=== PATIENT | female | born 1945 | race Caucasian/White ===

== ENCOUNTER 2017-04-14 11:21 | Outpatient (CLI) | payer MEDICARE, BC ==
[~2017-04-14] VITALS: Ht 157.6 cm; Wt 60.0 kg
[2017-04-14 11:56] VITALS: BP 125/69; PULSE 81; TEMP 98.1
[2017-04-14] MEDS ORDERED: BUSPAR DIVIDOSE15 MG PO (12:02)
[2017-04-14] MEDS ORDERED: NEURONTIN600 MG/TAB PO (12:03)
[2017-04-14] MEDS ORDERED: ESTRACE 1MG1 MG/TAB PO (12:03)
[2017-04-14] MEDS ORDERED: SYNTHROID0.088 MG/T PO (12:03)
[2017-04-14] MEDS ORDERED: PRINZIDE 12.5 M1 TAB PO (12:04)
[2017-04-14] MEDS ORDERED: MOBIC 7.5MG7.5 MG PO (12:11)
[2017-04-14] MEDS ORDERED: MOBIC 7.5MG7.5 MG (12:11)
[2017-04-14] MEDS ORDERED: PRAVACHOL 40MG40 MG PO (12:11)
[2017-04-14] MEDS ORDERED: PROBIOTIC FORMU1 CAP PO (12:12)
[2017-04-14] MEDS ORDERED: EFFEXOR-XR150 MG PO (12:12)
[2017-04-14] MEDS ORDERED: ASPIRIN 81M81 MG/TA2 PO (14:14)
== END 2017-04-14 14:56 | disposition home or self-care (01) ==
LOC: COL.CAR 11:21
DX: R55 Syncope and collapse (principal)

== ENCOUNTER 2017-10-16 13:07 | Outpatient (CLI) | payer MEDICARE, BC ==
[~2017-10-16] VITALS: Ht 157.5 cm; Wt 57.7 kg
[~2017-10-16 13:07] MED LIST: ASPIRIN 81M81 MG/TA2 PO; BUSPAR DIVIDOSE15 MG PO; EFFEXOR-XR150 MG PO; ESTRACE 1MG1 MG/TAB PO; MOBIC 7.5MG7.5 MG; MOBIC 7.5MG7.5 MG PO; NEURONTIN600 MG/TAB PO; PRAVACHOL 40MG40 MG PO; PRINZIDE 12.5 M1 TAB PO; PROBIOTIC FORMU1 CAP PO; SYNTHROID0.088 MG/T PO
[2017-10-16 13:23] VITALS: BP 140/75; PULSE 75; TEMP 97.6
[2017-10-16 15:45] VITALS: BP 148/60; PULSE 94; TEMP 97.9
[2017-10-16] MEDS ORDERED: CEPHALEXIN500 M1 PO (15:48)
== END 2017-10-16 15:45 | disposition home or self-care (01) ==
LOC: COL.CAR 13:07
DX: R55 Syncope and collapse (principal); I10 Essential (primary) hypertension; E78.5 Hyperlipidemia, unspecified; G47.33 Obstructive sleep apnea (adult) (pediatric); D64.9 Anemia, unspecified; F41.9 Anxiety disorder, unspecified; F32.9 Major depressive disorder, single episode, unspecified; E03.9 Hypothyroidism, unspecified; M47.817 Spondylosis without myelopathy or radiculopathy, lumbosacral region; G89.29 Other chronic pain; M54.9 Dorsalgia, unspecified; Z90.49 Acquired absence of other specified parts of digestive tract; Z90.710 Acquired absence of both cervix and uterus; Z88.5 Allergy status to narcotic agent; Z88.8 Allergy status to other drugs, medicaments and biological substances; Z79.82 Long term (current) use of aspirin

== ENCOUNTER 2017-10-21 08:23 | Emergency (ER) | payer MEDICARE, BC ==
[~2017-10-21] VITALS: Ht 154.9 cm; Wt 59.2 kg
[~2017-10-21 08:23] MED LIST changes: +CEPHALEXIN500 M1 PO
[2017-10-21 08:29] VITALS: BP 119/66; TEMP 97.9
[2017-10-21 09:16] VITALS: PULSE 86
== END 2017-10-21 09:16 | disposition home or self-care (01) ==
LOC: COL.ER 08:23
DX: T81.30XA Disruption of wound, unspecified, initial encounter (principal); I10 Essential (primary) hypertension; Z90.49 Acquired absence of other specified parts of digestive tract; Z90.710 Acquired absence of both cervix and uterus; Z98.890 Other specified postprocedural states; Z79.82 Long term (current) use of aspirin

== ENCOUNTER 2017-10-31 09:46 | Outpatient (CLI) | payer MEDICARE, BC ==
[~2017-10-31] VITALS: Ht 155 cm; Wt 59.0 kg
[2017-10-31 10:30] VITALS: BP 113/49; PULSE 65; TEMP 97.8
[2017-10-31] MEDS ORDERED: CEPHALEXIN500 M1 PO (10:36)
[2017-10-31 10:58] VITALS: BP 116/63; PULSE 78
[2017-10-31 12:54] VITALS: BP 112/64; PULSE 69; TEMP 98.4
== END 2017-10-31 12:55 | disposition home or self-care (01) ==
LOC: COL.CARD 09:46
DX: T82.897A Other specified complication of cardiac prosthetic devices, implants and grafts, initial encounter (principal); E78.5 Hyperlipidemia, unspecified; I10 Essential (primary) hypertension; G47.33 Obstructive sleep apnea (adult) (pediatric); Z88.6 Allergy status to analgesic agent; D64.9 Anemia, unspecified; F41.9 Anxiety disorder, unspecified; F32.9 Major depressive disorder, single episode, unspecified; E03.9 Hypothyroidism, unspecified; G25.81 Restless legs syndrome; G89.29 Other chronic pain; M54.5 Low back pain; M47.817 Spondylosis without myelopathy or radiculopathy, lumbosacral region; Z90.49 Acquired absence of other specified parts of digestive tract; Z90.710 Acquired absence of both cervix and uterus; Z79.82 Long term (current) use of aspirin; Z79.52 Long term (current) use of systemic steroids; Z82.49 Family history of ischemic heart disease and other diseases of the circulatory system; Z82.61 Family history of arthritis
CPT/HCPCS: J0690; J2250; J7040

== ENCOUNTER → 2018-02-27 | Outpatient (CLI) | payer MEDICARE, BC | LOC: COL.RAD 08:50 | DX: I67.82 Cerebral ischemia (principal) | CPT/HCPCS: A9585 ==

== ENCOUNTER 2018-03-13 13:50 | Outpatient (CLI) | payer MEDICARE, BC ==
[~2018-03-13] VITALS: Ht 155 cm; Wt 60.2 kg
[2018-03-13 14:08] VITALS: BP 102/68; PULSE 82; TEMP 97.1
== END 2018-03-13 15:15 | disposition home or self-care (01) ==
LOC: EUO 13:50
DX: G96.8 Other specified disorders of central nervous system (principal)

== ENCOUNTER 2020-01-02 11:00 | Outpatient (RCR) | payer MEDICARE, BC ==
[~2020-01-02 11:00] MED LIST changes: +ARICEPT 5MG PO; +BUSPIRONE HCL7.5 MG PO; +FLEXERIL 1010 MG/TAB PO; +MEDROL 4MG DOSPA4 MG PO; +MIRAPEX 0.0.125 MG/T PO; +NORVASC 5MG5 MG/TAB PO; +PERCOCET 325 MG1 TA2 PO; +SYNTHROID0.05 MG/TA PO
== END 2020-03-22 | disposition home or self-care (01) ==
LOC: WSST
DX: R49.0 Dysphonia (principal)

== ENCOUNTER → 2021-07-01 | Outpatient (CLI) | payer MEDICARE, BC | LOC: MC.RAD 10:47 | DX: N63.20 Unspecified lump in the left breast, unspecified quadrant (principal) ==

== ENCOUNTER → 2021-07-13 | Outpatient (CLI) | payer MEDICARE, BC | LOC: MC.RAD 09:53 | DX: N63.20 Unspecified lump in the left breast, unspecified quadrant (principal) ==